=== PATIENT | male | born 1950 | race Caucasian/White ===

== ENCOUNTER 2017-12-10 16:15 | Inpatient (IN) | payer BC ==
--- NOTE | 2017-12-10 17:05 | ED Physician Chart ---
ED Chief Complaint/HPI - Patient Information Date Seen:: 12/10/17 Time Seen:: 16:40 Chief Complaint:: Leg Swelling History of Present Illness:: onset x 3 days of bilateral LE swelling and erythema; pt denies trauma, H/As, S/ T, neck pain, C/P, cough, SOB, Abd. Pain, A/N/V/D/C, fever, chills, or urinary s /s; pt's last tetanus shot: < 5 years; UTD Allergies:: Allergies Allergy/AdvReac Type Severity Reaction Status Date / Time Penicillins Allergy Severe FACIAL Verified 12/10/17 16:28 SWELLING Vitals:: Vital Signs - 8 hr 12/10/17 16:46 Temp 98.1 F HR 77 RR 17 BP 142/71 O2 Sat % 97 Historian:: Patient Review:: Nurse's Note Reviewed ED Review of Systems - Review of Systems General/Constitutional: No fever, No chills, No weight loss, No weakness, No diaphoresis, No edema, No loss of appetite Skin: Skin lesions, Rash, No bruising Head: No headache, No light-headedness Eyes: No loss of vision, No pain, No diplopia ENT: No earache, No nasal drainage, No sore throat, No tinnitus Neck: No neck pain, No swelling, No thyromegaly, No stiffness, No mass noted Cardio Vascular: No chest pain, No palpitations, No PND, No orthopnea, No edema Pulmonary: No SOB, No cough, No sputum, No wheezing GI: No nausea, No vomiting, No diarrhea, No pain, No melena, No hematochezia, No constipation, No hematemesis G/U: No dysuria, No frequency, No hematuria, No nacturia Musculoskeletal: No bone or joint pain, No back pain, No muscle pain Endocrine: No polyuria, No polydipsia Psychiatric: Prior psych history, Depression, No anxiety, No suicidal ideation, No homicidal ideation, No auditory hallucination, No visual hallucination Hematopoietic: No bruising, No lymphadenopathy Allergic/Immuno: No urticaria, No angioedema Neurological: No syncope, No focal symptoms, No weakness, No paresthesia, No headache, No seizure, No dizziness, No confusion, No vertigo ED Past Medical History - Past Medical History Obtainable: Yes Past Medical History: HTN, DM, CAD, Asthma/COPD, Dyslipidemia, PUD/GERD Family History: HTN Social History: Non Smoker, No Alcohol, No Drug Use, Surgical History: None Psychiatricy History: None, Depression Medication: Reviewed ED Physical Exam - Physical Examination General/Constitutional: Awake, Well-developed, well-nourished, Alert, No distress, GCS 15, Non-toxic appearing, Ambulatory Head: Atraumatic Eyes: Lids, conjuctiva normal, PERRL, EOMI Skin: Nl inspection, No rash, No skin lesions, No ecchymosis, Well hydrated, No lymphadenopathy Other Skin comments:: + LE Cellulitis ENMT: External ears, nose nl, TM canals nl, Nasal exam nl, Lips, teeth, gums nl , Oropharynx nl, Tonsils nl Neck: Nontender, Full ROM w/o pain, No JVD, No nuchal rigidity, No bruit, No mass, No stridor Respiratory: Nl effort/Exclusion, Clear to Auscultation, No Wheeze/Rhonchi/Rales Cardio Vascular: RRR, No murmur, gallop, rubs, NL S1 S2, Carotid/Femoral/Distal pulses equal bilaterally GI: No tenderness/rebounding/guarding, No organomegaly, No hernia, Normal BS's, Nondistended, No mass/bruits, No McBurney tenderness, Rectum exam nl : No CVA tenderness Extremities: No tenderness or effusion, Full ROM, normal strength in all extremities, No edema, Normal digits & nails Other Extremities comments:: + LE Cellulitis Neuro/Psych: Alert/oriented, DTR's symmetric, Normal sensory exam, Normal motor strength, Judgement/insight normal, Mood normal, Normal gait, No focal deficits Misc: Normal back, No paraspinal tenderness ED Labs/Radiology/EKG Results - Lab Results Comments:: unremarkable - Radiology Results Comments:: CXR: NAD; U/S; NAD; no DVT - EKG Interpretations EKG Time:: 17:30 Rate & Rhythm: 65; NSR Comments:: old ASMI; non-specific st-t changes ED Septic Shock - . Is Septic Shock (SBP<90, OR Lactate>4 mmol\L) present?: No - <6hrs of presentation: Vital Signs: Vital Signs - 8 hr 12/10/17 16:46 Temp 98.1 F HR 77 RR 17 BP 142/71 O2 Sat % 97 ED Reassessment (Disposition) - Reassessment Reassessment Condition:: Improved - Diagnosis Diagnosis:: Leg Swelling; Cellulitis; Sepsis - Aftercare/Follow up Instructions Aftercare/Follow-Up Instructions:: Counseled pt regarding lab results/diagnosis & need follow up, Counseled pt & family regarding lab results/diagnosis & need follow up - Patient Disposition Discharge/Transfer:: Acute Care w/in this hosp Accepting Physician:: Dr. Kerr Time Called:: 1829 Time Responded:: 18:30 Admitted to:: Med/Surg Spoke to:: Dr. Kerr Admitting Medical Physician:: Dr. Kerr Condition at Disposition:: Stable, Improved
[2017-12-10 17:24] LABS: % BASOPHILS 0.4 % (0.0-2.0); % EOSINOPHILS 2.5 % (0.0-5.0); % LYMPHOCYTES 19.1 % (20.0-50.0); % MONOCYTES 6.7 % (2.0-10.0); % NEUTROPHILS 71.3 % (40.0-80.0); EOSINOPHILE ABSOLUTE 0.2 Th/cmm (0.1-0.4); HEMATOCRIT 42.2 % (41.0-60); HEMOGLOBIN 14.1 gm/dL (12-16); LYMPHOCYTE ABSOLUTE 1.6 Th/cmm (1.5-3.0); MEAN CELL VOLUME 89.4 fl (80-99); MEAN CORPUSCULAR HGB CONC 33.5 pg (28.0-36.0); MEAN PLATELET VOLUME 8.2 fl; MONOCYTE ABSOLUTE 0.6 Th/cmm (0.3-1.0); NEUTROPHILE ABSOLUTE 5.9 Th/cmm (1.8-8.0); PLATELET COUNT 137 Th/cmm (150-400); RED BLOOD COUNT 4.72 Mil/cmm (3.80-5.80); RED CELL DISTRIBUTION WIDTH 14.2 % (11.5-20.0); WHITE BLOOD COUNT 8.3 Th/cmm (4.8-10.8)
[2017-12-10 17:38] LABS: INR 0.96 (0.5-1.4)
[2017-12-10 17:42] LABS: ALB/GLOB RATIO 1.3 (1.0-1.8); ALBUMIN 3.9 gm/dL (4.2-5.5); ALKALINE PHOSPHATASE 71 U/L (34-104); ANION GAP 11.9 (7.0-16.0); BILIRUBIN,TOTAL 0.7 mg/dL (0.3-1.0); BUN - UREA NITROGEN 17 mg/dL (7-25); CARBON DIOXIDE 27.1 mEq/L (21.0-31.0); CHLORIDE 101 mEq/L (98-107); CREATININE - SERUM 1.4 mg/dL (0.7-1.3); CREATININE KINASE 164 U/L (30-223); GFR AFRICAN-AMERICAN > 60.0 ml/min (>90); GFR NON AFRICAN-AMERICAN 54.1 ml/min; GLUCOSE 129 mg/dL (70-105); SGOT 24 U/L (13-39); SGPT/ALT 28 U/L (7-52); SODIUM SERUM 136 mEq/L (136-145); TOTAL PROTEIN,SERUM 6.9 gm/dL (6.0-8.3)
[2017-12-10 17:44] LABS: TROP I 0.01 ng/mL (0.01-0.05)
[2017-12-10] MEDS: Sodium Chloride 0.9% 1,000 ML IV SCH (21:40)
[2017-12-10 22:20] VITALS: BP 153/78
[2017-12-11 01:31] LABS: URINE MICROSCOPIC INDICATED? YES; URINE SOURCE MIDSTREAM
[2017-12-11 01:34] LABS: URINE BILIRUBIN NEGATIVE (NEGATIVE); URINE BLOOD NEGATIVE (NEGATIVE); URINE GLUCOSE (UA) NEGATIVE (NEGATIVE); URINE KETONE NEGATIVE (NEGATIVE); URINE LEUKOCYTE ESTERASE NEGATIVE (NEGATIVE); URINE NITRATE NEGATIVE (NEGATIVE); URINE PROTEIN 30 mg/dL (NEGATIVE)
[2017-12-11 01:38] LABS: URINE CLARITY HAZY (CLEAR); URINE COLOR YELLOW
[2017-12-11 01:41] LABS: URINE BACTERIA NONE SEEN /hpf (NONE SEEN); URINE EPITHELIAL CELLS FEW /lpf (FEW); URINE RBC 0-2 /hpf (0-5); URINE WBC 0-2 /hpf (0-5)
[2017-12-11] MEDS ORDERED: cefTRIAXone 1 GM in Sodium Chloride 0.9% 50 ML IV SCH (06:00)
--- NOTE | 2017-12-11 07:24 | Diagnostic Imaging Report ---
Bilateral lower extremity Doppler venous ultrasound exam HISTORY: Pain/swelling Sonographic sector images were obtained through the deep venous systems of both legs. Associated Doppler data was obtained. The exam demonstrates patency of the common femoral, superficial femoral, popliteal, and posterior tibial veins bilaterally. Specifically, no thrombus is seen. There are normal compressibility and augmentation responses. IMPRESSION: Negative exam for deep vein thrombophlebitis.
[2017-12-11 07:34] LABS: % BASOPHILS 0.7 % (0.0-2.0); % EOSINOPHILS 2.4 % (0.0-5.0); % LYMPHOCYTES 21.6 % (20.0-50.0); % MONOCYTES 6.8 % (2.0-10.0); % NEUTROPHILS 68.5 % (40.0-80.0); BASOPHILE ABSOLUTE 0.1 Th/cumm (0-0.2); EOSINOPHILE ABSOLUTE 0.2 Th/cmm (0.1-0.4); HEMATOCRIT 42.5 % (41.0-60); LYMPHOCYTE ABSOLUTE 1.6 Th/cmm (1.5-3.0); MEAN CELL VOLUME 89.6 fl (80-99); MEAN CORPUSCULAR HEMOGLOBIN 29.6 pg (27.0-31.0); MEAN PLATELET VOLUME 8.3 fl; MONOCYTE ABSOLUTE 0.5 Th/cmm (0.3-1.0); NEUTROPHILE ABSOLUTE 4.8 Th/cmm (1.8-8.0); PLATELET COUNT 126 Th/cmm (150-400); RED BLOOD COUNT 4.74 Mil/cmm (3.80-5.80); RED CELL DISTRIBUTION WIDTH 14.4 % (11.5-20.0); WHITE BLOOD COUNT 7.2 Th/cmm (4.8-10.8)
--- NOTE | 2017-12-11 07:40 | Diagnostic Imaging Report ---
CHEST X-RAY: AP view INDICATION: pain COMPARISON: None FINDINGS: There is mild elevation right hemidiaphragm with low lung volumes and right basal atelectasis. No focal consolidation or effusions. Cardiomegaly is noted. Degenerative changes of the spine are noted. IMPRESSION: Mild elevation of the right hemidiaphragm with right basal atelectasis. No focal consolidation identified. Cardiomegaly.
[2017-12-11 07:47] LABS: ALB/GLOB RATIO 1.3 (1.0-1.8); ALBUMIN 3.7 gm/dL (4.2-5.5); ALKALINE PHOSPHATASE 61 U/L (34-104); ANION GAP 10.7 (7.0-16.0); BILIRUBIN,TOTAL 0.8 mg/dL (0.3-1.0); BUN - UREA NITROGEN 14 mg/dL (7-25); CALCIUM SERUM 8.6 mg/dL (8.6-10.3); CARBON DIOXIDE 27.3 mEq/L (21.0-31.0); CHLORIDE 101 mEq/L (98-107); CHOLESTEROL 124 mg/dL (<200); CREATININE - SERUM 1.3 mg/dL (0.7-1.3); GFR AFRICAN-AMERICAN > 60.0 ml/min (>90); GFR NON AFRICAN-AMERICAN 58.9 ml/min; GLUCOSE 99 mg/dL (70-105); HDL -HIGH DENSITY LIPOPROTEIN 34 mg/dL (23-92); MAGNESIUM 1.9 mg/dL (1.9-2.7); SGOT 21 U/L (13-39); SGPT/ALT 25 U/L (7-52); SODIUM SERUM 135 mEq/L (136-145); TOTAL PROTEIN,SERUM 6.5 gm/dL (6.0-8.3); TRIGLYCERIDES 194 mg/dL (<150)
[2017-12-11 08:02] LABS: ESR SEDIMENTATION SED RATE 25 mm/hr (0-20)
[2017-12-11] MEDS: Sodium Chloride 0.9% 1,000 ML IV SCH (10:33)
[2017-12-11] MEDS: Hydrocodone/APAP 5mg/325mg Tab PO PRN (12:19)
--- NOTE | 2017-12-11 13:40 | History & Physical ---
ADMIT DATE: CHIEF COMPLAINT: Bilateral lower extremity swelling, redness and pain. HISTORY OF PRESENT ILLNESS: The patient is a pleasant 67-year-old gentleman, who was sent from Dr. Carpenter's office secondary to the above-mentioned complaints. He apparently has been having the swelling and the pain for about 4 days and usually by elevating his legs at night, the swelling gets better, but this time around, it has actually gotten worse. He was sent to the ED for further management and care. He does have a history of chronic lower back pains and that is secondary to severe DJD and OA on his lower spine and has underwent multiple surgeries in the past. He has limited mobility, but is able to ambulate with a cane. He also has a history of type 2 diabetes, hypertension, BPH and neuropathy. He denied any fever, chills, any open wounds or discharge from the lower extremities. He does state that at one point he had similar symptoms and at that time, he had open ulcers. PAST MEDICAL HISTORY: As noted above, CAD status post stent, depression. PAST SURGICAL HISTORY: Multiple lower back surgeries. He also had stent placements. FAMILY HISTORY: Likely noncontributory to this admission. SOCIAL HISTORY: No tobacco, ETOH or illicit drug usage. He lives at home with his . ALLERGIES: Penicillin with swelling. MEDICATIONS: Wellbutrin 150 a.m., Plavix 75 q.p.m., gabapentin 900 mg b.i.d., [place] 5/325 q. day p.r.n. for severe pain, lisinopril 5 q. daily, metformin 500 mg b.i.d., metoprolol 50 b.i.d., niacin 300 mg at bedtime, Zoloft 50 mg q. daily, simvastatin 5 two times weekly, Flomax 0.4 b.i.d., trazodone 450 at bedtime. REVIEW OF SYSTEMS: CONSTITUTIONAL: He denies any fever, chills. CARDIOVASCULAR: He denies any angina, chest pain. PULMONARY: No cough, no phlegm production, no congestion, no shortness of breath. GASTROINTESTINAL: No bowel habit changes. GENITOURINARY: No bladder habit changes. NEUROLOGIC: No changes in vision, no headaches. Denies any syncope. MUSCULOSKELETAL: Chronic lower back pain, chronic bilateral lower extremity pain and also chronic swelling. PHYSICAL EXAMINATION: VITAL SIGNS: Temperature 97.4, pulse 66, respirations 18, BP 132/69 with sats of 96-98% on room air. GENERAL: A well-developed, obese gentleman, awake, alert and oriented x 3, answers questions appropriately. HEAD AND NECK: Normocephalic, atraumatic. Pupils are reactive to light. Extraocular movements are intact. Oropharynx is moist and clear. CARDIAC: Regular rate and rhythm with distant sounds. LUNGS: Clear to auscultation bilaterally. ABDOMEN: Soft, supple, nontender, nondistended, normoactive bowel sounds. EXTREMITIES: On lower extremity, there is about 2+ pitting edema. There is mild redness up to the mid shins on both lower extremities and they are both warm to touch. There are no open wounds/ulcers. There are 2+ pedal pulses. NEUROLOGIC: Grossly intact, nonfocal. LABORATORY DATA: On admission, white count 8.3, platelet count 137. Chemistry showed a creatinine of 1.4 with glucose of 129, otherwise chemistries were within normal limits. Urinalysis showed positive for protein, negative for leukocyte esterase, 0-2 rbc's. DIAGNOSTICS: There was a venous ultrasound of the bilateral lower extremities showing negative for DVT and a chest x-ray showed mild elevation of the right hemidiaphragm with right basilar atelectasis. No focal consolidation was noted. IMPRESSION: 1. Bilateral lower extremity cellulitis. 2. [id number] bilateral lower extremity swelling/edema. 3. Type 2 diabetes. 4. History of essential hypertension. 5. History of peripheral neuropathy. 6. History of coronary artery disease status post stent placement. 7. History of benign prostatic hypertrophy. 8. History of chronic lower back pain. 9. History of depression. PLAN: The patient has been admitted to the medical floor for further management and care. The patient has been placed on vancomycin and will be kept on his other medications as scheduled. Given his swelling, I will add Lasix 40 mg IV q. day and we will monitor labs in the a.m. I anticipate this patient will need only 1 more day of antibiotics and possibly will be discharged tomorrow morning. JOB# [id number] [facility]
[2017-12-11] MEDS: INSULIN ASPART SLIDING SCALE 100 UNITS/ML UNIT SUBQ SCH ×2 (16:44→20:58)
[2017-12-11 17:08] LABS: A1C % 6.6 % (4.0-6.0)
--- NOTE | 2017-12-11 22:36 | Consultation ---
DATE OF CONSULTATION: 12/11/2017 PSYCHIATRIC PROGRESS NOTE REQUESTING CONSULTATION: Joe Kerr MD. REASON FOR CONSULTATION: History of depression. HISTORY OF PRESENT ILLNESS: This patient is a 67-year-old male living with his family. Information obtained directly by interviewing the patient as well as reviewing the admission papers. The patient is admitted here for bilateral lower extremity edema and the patient is being currently medically stabilized and psychiatric consultation is called since the patient voiced suicidal ideation. Chart is reviewed. The patient is interviewed. Staff was spoken to. During the interview, the patient is stating that he has been feeling depressed for a long time since he lost a job 10 years ago. 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 The patient has been feeling frustrated. The patient is stating that he lives most of the time in [place] and comes to visit his who is more over here. The patient is stating that he is going to go back to ____ in beginning of January and then be back in July. The patient is stating that he is seeing a psychiatrist over there and is currently on 50 mg of the Zoloft. The patient during the interview stating that there are occasions where he felt like hurting himself, but he states that he does not have any plans at this time. The patient is not presenting with any threats to harm self or others at this time. PAST PSYCHIATRIC HISTORY: Please refer the above. SOCIAL HISTORY: The patient is , living with his . SUBSTANCE ABUSE HISTORY: None. PHYSICAL OR SEXUAL ABUSE HISTORY: None. LEGAL PROBLEMS: None at this time. MENTAL STATUS EXAMINATION: The patient is a 67-year-old male, moderately obese, cooperative. Eye contact is fair at this time. Mood is noted to be mildly depressed. Affect is constricted. The patient is not suicidal or homicidal. The patient is motivated. The patient wants to seek therapy as well as establish psychiatric followup. The patient is alert and oriented x 3. Insight and judgment at this time are noted to be improving. Impulse control seems to be fair. DIAGNOSTIC IMPRESSION: Major depressive disorder, recurrent and moderate. PLAN: To continue the patient with the Zoloft and followup. JOB# [id number]
[2017-12-12] MEDS: Hydrocodone/APAP 5mg/325mg Tab PO PRN (04:29)
[2017-12-12 05:44] LABS: % BASOPHILS 0.4 % (0.0-2.0); % EOSINOPHILS 3.2 % (0.0-5.0); % LYMPHOCYTES 25.1 % (20.0-50.0); % MONOCYTES 7.4 % (2.0-10.0); % NEUTROPHILS 63.9 % (40.0-80.0); EOSINOPHILE ABSOLUTE 0.2 Th/cmm (0.1-0.4); HEMATOCRIT 39.9 % (41.0-60); HEMOGLOBIN 13.5 gm/dL (12-16); LYMPHOCYTE ABSOLUTE 1.8 Th/cmm (1.5-3.0); MEAN CELL VOLUME 90.9 fl (80-99); MEAN CORPUSCULAR HEMOGLOBIN 30.7 pg (27.0-31.0); MEAN CORPUSCULAR HGB CONC 33.8 pg (28.0-36.0); MEAN PLATELET VOLUME 8.5 fl; MONOCYTE ABSOLUTE 0.5 Th/cmm (0.3-1.0); NEUTROPHILE ABSOLUTE 4.7 Th/cmm (1.8-8.0); PLATELET COUNT 133 Th/cmm (150-400); RED BLOOD COUNT 4.39 Mil/cmm (3.80-5.80); RED CELL DISTRIBUTION WIDTH 14.4 % (11.5-20.0); WHITE BLOOD COUNT 7.2 Th/cmm (4.8-10.8)
[2017-12-12 06:00] LABS: ANION GAP 9.7 (7.0-16.0); BUN - UREA NITROGEN 17 mg/dL (7-25); CARBON DIOXIDE 27.9 mEq/L (21.0-31.0); CHLORIDE 100 mEq/L (98-107); CREATININE - SERUM 1.3 mg/dL (0.7-1.3); GFR AFRICAN-AMERICAN > 60.0 ml/min (>90); GFR NON AFRICAN-AMERICAN 58.9 ml/min; GLUCOSE 107 mg/dL (70-105); MAGNESIUM 1.9 mg/dL (1.9-2.7); POTASSIUM SERUM 3.6 mEq/L (3.5-5.1); SODIUM SERUM 134 mEq/L (136-145)
[2017-12-12] MEDS: INSULIN ASPART SLIDING SCALE 100 UNITS/ML UNIT SUBQ SCH ×2 (06:50→12:30)
[2017-12-12] MEDS ORDERED: Vancomycin HCl 1.5 GM in Sodium Chloride 0.9% 500 ML IV SCH (10:00)
--- NOTE | 2017-12-12 21:50 | Discharge Summary ---
DATE OF DISCHARGE: 12/12/2017 ADMITTING DIAGNOSES: 1. Bilateral lower extremity cellulitis/edema. 2. History of depression with recent exacerbation. SECONDARY DIAGNOSES: 1. Type 2 diabetes. 2. Essential hypertension. 3. Peripheral neuropathy. 4. Coronary artery disease, status post stent placement. 5. Benign prostatic hypertrophy. 6. History of chronic lower back pain with multiple lower back surgeries. 7. Chronic kidney insufficiency. DISCHARGE DIAGNOSES: 1. Bilateral lower extremity cellulitis, improved. 2. Acute on chronic depression, stable. CONSULTANTS: Dr. Crawford, Psychiatry. MAJOR PROCEDURES: On 12/10/2017, a venous duplex ultrasound bilaterally showing no evidence of DVT. BRIEF HOSPITAL COURSE: The patient is a pleasant 67-year-old gentleman, who was sent from his PCP's office (Dr. Carpenter) with a 4-day history of worsening bilateral lower extremity edema, redness and pain. He was admitted for IV antibiotics and was given IV Lasix given his swelling. By hospital day #2, his symptoms had improved and his redness had also gone down. His WBC was normal on admission, but his creatinine was noted to be slightly elevated at 1.4. Current labs include a white count of 7.2, a BUN of 14, creatinine 1.3. He did voice recent depression with suicidal ideation for which he was cleared by Psychiatry. MEDICATIONS ON DISCHARGE: Clindamycin 300 mg t.i.d. x 10 days, Lasix 20 mg p.o. q. day x 5 days, Plavix 75 mg q.p.m., gabapentin 100 mg b.i.d., Zestril 5 mg q. day, metformin 250 mg b.i.d., metoprolol 50 mg b.i.d., niacin 250 mg at bedtime, Zoloft 50 mg q. day, Zocor 5 mg 2 times a week, Flomax 0.4 mg b.i.d., trazodone 450 mg at bedtime. DISPOSITION: The patient was discharged home to self care. 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 Benavides in the next couple of days as well. JOB# [id number] [facility]
== END 2017-12-12 13:34 | disposition home or self-care (01) | DRG 872 ==
LOC: ER 16:15 → MSI 19:20 → UNDOADMIN 20:24
PROVIDERS: ADMIT Internal Medicine; ATTEND Internal Medicine
DX: A41.9 Sepsis, unspecified organism (principal); L03.116 Cellulitis of left lower limb; F33.1 Major depressive disorder, recurrent, moderate; L03.115 Cellulitis of right lower limb; I25.10 Atherosclerotic heart disease of native coronary artery without angina pectoris; N40.0 Benign prostatic hyperplasia without lower urinary tract symptoms; G89.29 Other chronic pain; J44.9 Chronic obstructive pulmonary disease, unspecified; K21.9 Gastro-esophageal reflux disease without esophagitis; M19.90 Unspecified osteoarthritis, unspecified site; E11.42 Type 2 diabetes mellitus with diabetic polyneuropathy; N18.9 Chronic kidney disease, unspecified; I12.9 Hypertensive chronic kidney disease with stage 1 through stage 4 chronic kidney disease, or unspecified chronic kidney disease; E11.22 Type 2 diabetes mellitus with diabetic chronic kidney disease; Z88.0 Allergy status to penicillin; Z82.49 Family history of ischemic heart disease and other diseases of the circulatory system
CPT/HCPCS: 36415-UA; 71045-TC; 80048-TC; 80053-TC; 80061-TC; 80202-TC; 81001-TC; 82550-TC; 82948-90; 83036-90; 83605; 83735-TC; 84443-TC; 84484-TC; 85025-TC; 85610-TC; 85652-TC; 85730-TC; 86141-TC; 93005; 93970-TC-50; J1815; J1940; J3370; J7030; J7040; Z7610